=== PATIENT | male | born 1945 | race Caucasian/White ===

== ENCOUNTER 2022-05-08 19:15 | Emergency (ER) | payer MEDICARE, BC ==
[~2022-05-08] VITALS: Ht 185.4 cm; Wt 117.0 kg
[~2022-05-08 19:15] MED LIST: AVAPRO75 MG OR; DOXYCYCL HYC100 MG PO; GABAPENTIN100 MG PO; KEFLEX500 MG OR; LIPITOR20 MG OR; LOSARTAN POTASS50 MG PO; METFORMIN500 M1 OR; METFORMIN500 MG PO; METOPROLOL50 M1 PO; TOPROL XL100 MG OR; TOPROL XL50 MG PO; VICODIN1 TAB OR
[2022-05-08 19:46] VITALS: BP 144/72
[2022-05-08 20:00] VITALS: BP 142/72
[2022-05-08] MEDS ORDERED: [UNRECOGNIZED DRUG - REMARK] (20:05)
[2022-05-08 20:10] LABS: BASO% 0.6 % (0-3); EOS% 0.5 % (0-8); HEMATOCRIT 34.4 % (39.0-50.0); HEMOGLOBIN 11.7 g/dl (14.0-18.0); IMMATURE GRANULOCYTES 0.5 % (0.0-5.0); LYMPH% 11.9 % (15-41); MEAN CELL VOLUME 86.9 fL CALC (80.0-100.0); MEAN CORPUSCULAR HGB 29.5 pG CALC (26.0-32.0); MONO% 8.7 % (2-13); NEUT# 4.86 thou/uL (1.82-7.42); NEUT% 77.8 % (42-76); RED BLOOD COUNT 3.96 mill/uL (4.70-6.10); RED CELL DISTRI WIDTH 13.6 % (11.5-15.5)
[2022-05-08 20:21] LABS: ALBUMIN 3.6 g/dL (3.2-5.0); ALKALINE PHOSPHATASE 53 u/l (38-126); BILIRUBIN, TOTAL 0.5 mg/dL (0.2-1.3); BUN 16 mg/dL (8-23); BUN/CREATININE RATIO 12 (12-20 (CALC)); CARBON DIOXIDE 25 mmol/l (22-30); CHLORIDE 103 mmol/l (95-108); CREATININE 1.3 mg/dL (0.7-1.3); GFR FOR AFR.AMER. > 60 ML/MIN (>=60 (CALC)); GFR OTHER RACES 54 ML/MIN (>=60 (CALC)); SGOT/AST 22 u/l (19-48); TOTAL PROTEIN 6.7 g/dL (6.3-8.2)
[2022-05-08 20:30] VITALS: BP 128/64
[2022-05-08 20:31] LABS: ANION GAP 7 (6-22 (CALC)); SODIUM 131 mmol/l (137-146)
[2022-05-08 21:00] VITALS: BP 117/55
[2022-05-08 21:30] VITALS: BP 105/49
[2022-05-08 21:36] VITALS: BP 105/49
== END 2022-05-08 21:58 | disposition home or self-care (01) ==
LOC: ED 19:15
PROVIDERS: Family Medicine
DX: U07.1 COVID-19 (principal); R50.9 Fever, unspecified; R05.9 Cough, unspecified; M79.10 Myalgia, unspecified site; I10 Essential (primary) hypertension; E11.9 Type 2 diabetes mellitus without complications; Z28.311 Partially vaccinated for COVID-19